=== PATIENT | female | born 1960 | race African-American/Black ===

== ENCOUNTER → 2020-02-08 | Outpatient (CLI) | payer OTHER ==
[~2020-02-08] MED LIST: AMMONIUM LACTATE 12% LOTION 225GM BTL ONE; LIDOCAINE/PRILOCAINE 2.5-2.5% KIT ONE
[2020-02-08 14:30] LABS: BASOPHILS % 0.4 % (0.0-1.0); EOSINOPHILS # (AUTO) 0.2 (0.0-0.4); EOSINOPHILS % 2.4 % (0.0-6.0); HEMATOCRIT 33.6 % (34.2-44.1); HEMOGLOBIN 10.5 g/dL (12.0-16.0); LYMPHOCYTES # (AUTO) 2.9 (1.0-3.2); LYMPHOCYTES % 35.4 % (18.0-39.1); MEAN CORPUSCULAR HEMOGLOBIN 24.1 pg (28-32); MEAN CORPUSCULAR HGB CONC 31.3 g/dL (31-35); MEAN CORPUSCULAR VOLUME 77.2 fL (81-99); MONOCYTES # (AUTO) 0.6 (0.2-0.8); MONOCYTES % 7.7 % (4.4-11.3); NEUTROPHILS # (AUTO) 4.4 (2.1-6.9); NEUTROPHILS % 53.9 % (38.7-80.0); PLATELET COUNT 347 x10e3/uL (140-360); RED BLOOD COUNT 4.35 x10e6/uL (3.6-5.1); RED CELL DISTRIBUTION WIDTH 15.6 % (11.7-14.4)
[2020-02-08 14:51] LABS: ALANINE AMINOTRANSFERASE 9 IU/L (0-55); ALBUMIN 2.9 g/dL (3.5-5.0); ALBUMIN/GLOBULIN RATIO 0.6 (0.8-2.0); ALKALINE PHOSPHATASE 119 IU/L (40-150); ANION GAP 10.8 mmol/L (8-16); BLOOD UREA NITROGEN 10 mg/dL (7-26); BUN/CREATININE RATIO 10 (6-25); CALCIUM 8.6 mg/dL (8.4-10.2); CARBON DIOXIDE 23 mmol/L (22-29); CHLORIDE 110 mmol/L (98-107); CREATININE, SERUM 0.98 mg/dL (0.57-1.11); EST GLOMERULAR FILTRATION RATE > 60 ML/MIN (60-); GLUCOSE 174 mg/dL (74-118); POTASSIUM 3.8 mmol/L (3.5-5.1); SODIUM 140 mmol/L (136-145)
== END ==
LOC: WCC 10:51
PROVIDERS: ATTEND Family Medicine Adult Medicine
DX: E11.621 Type 2 diabetes mellitus with foot ulcer (principal); E11.628 Type 2 diabetes mellitus with other skin complications; L97.426 Non-pressure chronic ulcer of left heel and midfoot with bone involvement without evidence of necrosis; L97.416 Non-pressure chronic ulcer of right heel and midfoot with bone involvement without evidence of necrosis; L97.511 Non-pressure chronic ulcer of other part of right foot limited to breakdown of skin; R60.0 Localized edema; G99.0 Autonomic neuropathy in diseases classified elsewhere; I10 Essential (primary) hypertension; F31.9 Bipolar disorder, unspecified; Z01.810 Encounter for preprocedural cardiovascular examination
CPT/HCPCS: 36415; 80053; 83036; 84134; 85025; 85651; 86140; 87071; 87075; 87186; 87205

== ENCOUNTER → 2020-02-13 | Outpatient (CLI) | payer OTHER | LOC: WCC 09:25 | PROVIDERS: ATTEND Family Medicine Adult Medicine | DX: E11.621 Type 2 diabetes mellitus with foot ulcer (principal); E11.628 Type 2 diabetes mellitus with other skin complications; L97.416 Non-pressure chronic ulcer of right heel and midfoot with bone involvement without evidence of necrosis; L97.426 Non-pressure chronic ulcer of left heel and midfoot with bone involvement without evidence of necrosis; L97.511 Non-pressure chronic ulcer of other part of right foot limited to breakdown of skin; R60.0 Localized edema; G99.0 Autonomic neuropathy in diseases classified elsewhere; I10 Essential (primary) hypertension; F31.9 Bipolar disorder, unspecified; Z01.810 Encounter for preprocedural cardiovascular examination ==

== ENCOUNTER → 2020-02-15 | Outpatient (CLI) | payer OTHER | LOC: RAD 11:41 | PROVIDERS: ATTEND Family Medicine Adult Medicine | DX: E11.621 Type 2 diabetes mellitus with foot ulcer (principal); L97.416 Non-pressure chronic ulcer of right heel and midfoot with bone involvement without evidence of necrosis; L97.421 Non-pressure chronic ulcer of left heel and midfoot limited to breakdown of skin | CPT/HCPCS: 93306 ==

== ENCOUNTER → 2020-02-15 | Outpatient (CLI) | payer OTHER | LOC: WCC 10:39 | PROVIDERS: ATTEND Family Medicine Adult Medicine | DX: E11.621 Type 2 diabetes mellitus with foot ulcer (principal); E11.628 Type 2 diabetes mellitus with other skin complications; L97.426 Non-pressure chronic ulcer of left heel and midfoot with bone involvement without evidence of necrosis; L97.416 Non-pressure chronic ulcer of right heel and midfoot with bone involvement without evidence of necrosis; L97.511 Non-pressure chronic ulcer of other part of right foot limited to breakdown of skin; R60.0 Localized edema; G99.0 Autonomic neuropathy in diseases classified elsewhere; I10 Essential (primary) hypertension; F31.9 Bipolar disorder, unspecified; Z01.810 Encounter for preprocedural cardiovascular examination | CPT/HCPCS: 87071; 87075; 87205 ==

== ENCOUNTER → 2020-02-19 | Outpatient (CLI) | payer OTHER | LOC: WCC 15:27 | PROVIDERS: ATTEND Family Medicine Adult Medicine | DX: E11.621 Type 2 diabetes mellitus with foot ulcer (principal); E11.628 Type 2 diabetes mellitus with other skin complications; L97.426 Non-pressure chronic ulcer of left heel and midfoot with bone involvement without evidence of necrosis; L97.416 Non-pressure chronic ulcer of right heel and midfoot with bone involvement without evidence of necrosis; L97.511 Non-pressure chronic ulcer of other part of right foot limited to breakdown of skin; R60.0 Localized edema; I10 Essential (primary) hypertension; G99.0 Autonomic neuropathy in diseases classified elsewhere; F31.9 Bipolar disorder, unspecified; Z01.810 Encounter for preprocedural cardiovascular examination ==

== ENCOUNTER → 2020-02-22 | Outpatient (CLI) | payer OTHER | LOC: WCC 11:09 | PROVIDERS: ATTEND Family Medicine Adult Medicine | DX: E11.621 Type 2 diabetes mellitus with foot ulcer (principal); E11.628 Type 2 diabetes mellitus with other skin complications; L97.426 Non-pressure chronic ulcer of left heel and midfoot with bone involvement without evidence of necrosis; L97.416 Non-pressure chronic ulcer of right heel and midfoot with bone involvement without evidence of necrosis; L97.511 Non-pressure chronic ulcer of other part of right foot limited to breakdown of skin; L84 Corns and callosities; R60.0 Localized edema; G99.0 Autonomic neuropathy in diseases classified elsewhere; I10 Essential (primary) hypertension; F31.9 Bipolar disorder, unspecified; Z01.810 Encounter for preprocedural cardiovascular examination ==

== ENCOUNTER → 2020-02-27 | Outpatient (CLI) | payer OTHER | LOC: WCC 06:00 | PROVIDERS: ATTEND Family Medicine Adult Medicine | DX: E11.621 Type 2 diabetes mellitus with foot ulcer (principal); E11.628 Type 2 diabetes mellitus with other skin complications; L97.416 Non-pressure chronic ulcer of right heel and midfoot with bone involvement without evidence of necrosis; L97.426 Non-pressure chronic ulcer of left heel and midfoot with bone involvement without evidence of necrosis; R60.0 Localized edema; L84 Corns and callosities; G99.0 Autonomic neuropathy in diseases classified elsewhere; I10 Essential (primary) hypertension; F31.9 Bipolar disorder, unspecified; Z01.810 Encounter for preprocedural cardiovascular examination ==

== ENCOUNTER → 2020-02-29 | Outpatient (CLI) | payer OTHER | LOC: WCC 09:00 | PROVIDERS: ATTEND Family Medicine Adult Medicine | DX: E11.621 Type 2 diabetes mellitus with foot ulcer (principal); E11.628 Type 2 diabetes mellitus with other skin complications; L97.416 Non-pressure chronic ulcer of right heel and midfoot with bone involvement without evidence of necrosis; L97.426 Non-pressure chronic ulcer of left heel and midfoot with bone involvement without evidence of necrosis; G99.0 Autonomic neuropathy in diseases classified elsewhere; L84 Corns and callosities; R60.0 Localized edema; I10 Essential (primary) hypertension; F31.9 Bipolar disorder, unspecified; Z01.810 Encounter for preprocedural cardiovascular examination ==

== ENCOUNTER → 2020-03-05 | Outpatient (CLI) | payer OTHER | LOC: MRI 10:16 | PROVIDERS: ATTEND Family Medicine Adult Medicine | DX: E11.621 Type 2 diabetes mellitus with foot ulcer (principal); L97.416 Non-pressure chronic ulcer of right heel and midfoot with bone involvement without evidence of necrosis ==

== ENCOUNTER → 2020-03-05 | Outpatient (CLI) | payer OTHER | LOC: WCC 09:50 | PROVIDERS: ATTEND Family Medicine Adult Medicine | DX: E11.621 Type 2 diabetes mellitus with foot ulcer (principal); E11.628 Type 2 diabetes mellitus with other skin complications; L97.416 Non-pressure chronic ulcer of right heel and midfoot with bone involvement without evidence of necrosis; L97.426 Non-pressure chronic ulcer of left heel and midfoot with bone involvement without evidence of necrosis; R60.0 Localized edema; L84 Corns and callosities; G99.0 Autonomic neuropathy in diseases classified elsewhere; B96.89 Other specified bacterial agents as the cause of diseases classified elsewhere; I10 Essential (primary) hypertension; F31.9 Bipolar disorder, unspecified; Z01.810 Encounter for preprocedural cardiovascular examination ==

== ENCOUNTER → 2020-03-07 | Outpatient (CLI) | payer OTHER | LOC: WCC 10:11 | PROVIDERS: ATTEND Family Medicine Adult Medicine | DX: E11.621 Type 2 diabetes mellitus with foot ulcer (principal); E11.628 Type 2 diabetes mellitus with other skin complications; L97.416 Non-pressure chronic ulcer of right heel and midfoot with bone involvement without evidence of necrosis; L97.426 Non-pressure chronic ulcer of left heel and midfoot with bone involvement without evidence of necrosis; R60.0 Localized edema; L84 Corns and callosities; G99.0 Autonomic neuropathy in diseases classified elsewhere; I10 Essential (primary) hypertension; B96.89 Other specified bacterial agents as the cause of diseases classified elsewhere; F31.9 Bipolar disorder, unspecified; Z01.810 Encounter for preprocedural cardiovascular examination ==

== ENCOUNTER → 2020-03-12 | Outpatient (CLI) | payer OTHER | LOC: WCC 14:57 | PROVIDERS: ATTEND Family Medicine Adult Medicine | DX: E11.621 Type 2 diabetes mellitus with foot ulcer (principal); E11.628 Type 2 diabetes mellitus with other skin complications; M86.171 Other acute osteomyelitis, right ankle and foot; L97.416 Non-pressure chronic ulcer of right heel and midfoot with bone involvement without evidence of necrosis; L97.426 Non-pressure chronic ulcer of left heel and midfoot with bone involvement without evidence of necrosis; R60.0 Localized edema; L84 Corns and callosities; G99.0 Autonomic neuropathy in diseases classified elsewhere; I10 Essential (primary) hypertension; B96.89 Other specified bacterial agents as the cause of diseases classified elsewhere; F31.9 Bipolar disorder, unspecified; Z01.810 Encounter for preprocedural cardiovascular examination | CPT/HCPCS: 29581; 99213; G0277 ==

== ENCOUNTER → 2020-03-13 | Outpatient (CLI) | payer OTHER | LOC: WCC 14:24 | PROVIDERS: ATTEND Family Medicine | DX: E11.621 Type 2 diabetes mellitus with foot ulcer (principal); E11.628 Type 2 diabetes mellitus with other skin complications; M86.171 Other acute osteomyelitis, right ankle and foot; L97.416 Non-pressure chronic ulcer of right heel and midfoot with bone involvement without evidence of necrosis; L97.426 Non-pressure chronic ulcer of left heel and midfoot with bone involvement without evidence of necrosis; B96.89 Other specified bacterial agents as the cause of diseases classified elsewhere; L84 Corns and callosities; R60.0 Localized edema; I10 Essential (primary) hypertension; G99.0 Autonomic neuropathy in diseases classified elsewhere; F31.9 Bipolar disorder, unspecified; Z01.810 Encounter for preprocedural cardiovascular examination ==

== ENCOUNTER → 2020-03-14 | Outpatient (CLI) | payer OTHER | LOC: WCC 12:12 | PROVIDERS: ATTEND Family Medicine Adult Medicine | DX: E11.621 Type 2 diabetes mellitus with foot ulcer (principal); E11.628 Type 2 diabetes mellitus with other skin complications; M86.171 Other acute osteomyelitis, right ankle and foot; L97.416 Non-pressure chronic ulcer of right heel and midfoot with bone involvement without evidence of necrosis; L97.426 Non-pressure chronic ulcer of left heel and midfoot with bone involvement without evidence of necrosis; L84 Corns and callosities; R60.0 Localized edema; I10 Essential (primary) hypertension; G99.0 Autonomic neuropathy in diseases classified elsewhere; B96.89 Other specified bacterial agents as the cause of diseases classified elsewhere; F31.9 Bipolar disorder, unspecified; Z01.810 Encounter for preprocedural cardiovascular examination ==

== ENCOUNTER 2020-03-15 15:37 | Emergency (ER) | payer OTHER ==
[~2020-03-15] VITALS: Ht 175.3 cm; Wt 104.3 kg
[2020-03-15] MEDS ORDERED: HYDROCODONE/APAP 10MG-325MG TAB PO ONE (16:00)
[2020-03-15] MEDS ORDERED: CLONIDINE HCL 0.2 MG TAB PO ONE (16:00)
== END 2020-03-15 17:42 | disposition home or self-care (01) ==
LOC: ER 15:50
DX: I10 Essential (primary) hypertension (principal); I87.2 Venous insufficiency (chronic) (peripheral); F20.9 Schizophrenia, unspecified; Z85.89 Personal history of malignant neoplasm of other organs and systems
CPT/HCPCS: 36415; 82948; 99282

== ENCOUNTER → 2020-03-15 | Outpatient (CLI) | payer OTHER | LOC: WCC 15:03 | PROVIDERS: ATTEND Family Medicine Adult Medicine | DX: E11.621 Type 2 diabetes mellitus with foot ulcer (principal); E11.628 Type 2 diabetes mellitus with other skin complications; M86.171 Other acute osteomyelitis, right ankle and foot; L97.416 Non-pressure chronic ulcer of right heel and midfoot with bone involvement without evidence of necrosis; L97.426 Non-pressure chronic ulcer of left heel and midfoot with bone involvement without evidence of necrosis; R60.0 Localized edema; L84 Corns and callosities; G99.0 Autonomic neuropathy in diseases classified elsewhere; I10 Essential (primary) hypertension; B96.89 Other specified bacterial agents as the cause of diseases classified elsewhere; F31.9 Bipolar disorder, unspecified; Z01.810 Encounter for preprocedural cardiovascular examination ==

== ENCOUNTER → 2020-03-19 | Outpatient (CLI) | payer OTHER | LOC: MRI 08:55 | PROVIDERS: ATTEND Family Medicine Adult Medicine | DX: E11.621 Type 2 diabetes mellitus with foot ulcer (principal); L97.426 Non-pressure chronic ulcer of left heel and midfoot with bone involvement without evidence of necrosis ==

== ENCOUNTER → 2020-03-19 | Outpatient (CLI) | payer OTHER | LOC: WCC 14:36 | PROVIDERS: ATTEND Family Medicine Adult Medicine | DX: E11.621 Type 2 diabetes mellitus with foot ulcer (principal); E11.628 Type 2 diabetes mellitus with other skin complications; M86.171 Other acute osteomyelitis, right ankle and foot; L97.426 Non-pressure chronic ulcer of left heel and midfoot with bone involvement without evidence of necrosis; L97.416 Non-pressure chronic ulcer of right heel and midfoot with bone involvement without evidence of necrosis; R60.0 Localized edema; L84 Corns and callosities; G99.0 Autonomic neuropathy in diseases classified elsewhere; I10 Essential (primary) hypertension; B96.89 Other specified bacterial agents as the cause of diseases classified elsewhere; F31.9 Bipolar disorder, unspecified; Z01.810 Encounter for preprocedural cardiovascular examination | CPT/HCPCS: 99213; G0277 ==

== ENCOUNTER → 2020-03-20 | Outpatient (CLI) | payer OTHER | LOC: WCC 12:32 | PROVIDERS: ATTEND Family Medicine Adult Medicine | DX: E11.621 Type 2 diabetes mellitus with foot ulcer (principal); E11.628 Type 2 diabetes mellitus with other skin complications; M86.171 Other acute osteomyelitis, right ankle and foot; B96.89 Other specified bacterial agents as the cause of diseases classified elsewhere; L97.416 Non-pressure chronic ulcer of right heel and midfoot with bone involvement without evidence of necrosis; L97.426 Non-pressure chronic ulcer of left heel and midfoot with bone involvement without evidence of necrosis; R60.0 Localized edema; S90.411A Abrasion, right great toe, initial encounter; L84 Corns and callosities; G99.0 Autonomic neuropathy in diseases classified elsewhere; I10 Essential (primary) hypertension; F31.9 Bipolar disorder, unspecified; W45.8XXA Other foreign body or object entering through skin, initial encounter; Z01.810 Encounter for preprocedural cardiovascular examination ==

== ENCOUNTER → 2020-03-21 | Outpatient (CLI) | payer OTHER | LOC: WCC 13:34 | PROVIDERS: ATTEND Family Medicine Adult Medicine | DX: E11.621 Type 2 diabetes mellitus with foot ulcer (principal); E11.628 Type 2 diabetes mellitus with other skin complications; L97.416 Non-pressure chronic ulcer of right heel and midfoot with bone involvement without evidence of necrosis; M86.171 Other acute osteomyelitis, right ankle and foot; L97.426 Non-pressure chronic ulcer of left heel and midfoot with bone involvement without evidence of necrosis; B96.89 Other specified bacterial agents as the cause of diseases classified elsewhere; R60.0 Localized edema; S90.411A Abrasion, right great toe, initial encounter; G99.0 Autonomic neuropathy in diseases classified elsewhere; L84 Corns and callosities; I10 Essential (primary) hypertension; F31.9 Bipolar disorder, unspecified; W45.8XXA Other foreign body or object entering through skin, initial encounter; Z01.810 Encounter for preprocedural cardiovascular examination ==

== ENCOUNTER → 2020-03-25 | Outpatient (CLI) | payer OTHER | LOC: WCC 13:02 | PROVIDERS: ATTEND Family Medicine Adult Medicine | DX: E11.621 Type 2 diabetes mellitus with foot ulcer (principal); E11.628 Type 2 diabetes mellitus with other skin complications; M86.171 Other acute osteomyelitis, right ankle and foot; L97.426 Non-pressure chronic ulcer of left heel and midfoot with bone involvement without evidence of necrosis; L97.416 Non-pressure chronic ulcer of right heel and midfoot with bone involvement without evidence of necrosis; S90.411A Abrasion, right great toe, initial encounter; R60.0 Localized edema; G99.0 Autonomic neuropathy in diseases classified elsewhere; B96.89 Other specified bacterial agents as the cause of diseases classified elsewhere; I10 Essential (primary) hypertension; F31.9 Bipolar disorder, unspecified; Z01.810 Encounter for preprocedural cardiovascular examination; W45.8XXA Other foreign body or object entering through skin, initial encounter ==

== ENCOUNTER → 2020-03-26 | Outpatient (CLI) | payer OTHER | LOC: WCC 13:44 | PROVIDERS: ATTEND Family Medicine Adult Medicine | DX: E11.621 Type 2 diabetes mellitus with foot ulcer (principal); E11.628 Type 2 diabetes mellitus with other skin complications; M86.171 Other acute osteomyelitis, right ankle and foot; L97.416 Non-pressure chronic ulcer of right heel and midfoot with bone involvement without evidence of necrosis; L97.426 Non-pressure chronic ulcer of left heel and midfoot with bone involvement without evidence of necrosis; S90.411A Abrasion, right great toe, initial encounter; R60.0 Localized edema; B96.89 Other specified bacterial agents as the cause of diseases classified elsewhere; I10 Essential (primary) hypertension; G99.0 Autonomic neuropathy in diseases classified elsewhere; F31.9 Bipolar disorder, unspecified; W45.8XXA Other foreign body or object entering through skin, initial encounter; Z01.810 Encounter for preprocedural cardiovascular examination ==

== ENCOUNTER 2020-03-27 11:26 | Outpatient (RCR) | payer OTHER ==
[2020-03-28] MEDS ORDERED: MINERAL OIL/PETROLAT/GLYCERI 6OZ BTL ONE (14:18)
== END 2020-04-07 ==
LOC: WCC 11:26
PROVIDERS: ATTEND Family Medicine Adult Medicine
DX: E11.621 Type 2 diabetes mellitus with foot ulcer (principal); E11.628 Type 2 diabetes mellitus with other skin complications; M86.171 Other acute osteomyelitis, right ankle and foot; L97.426 Non-pressure chronic ulcer of left heel and midfoot with bone involvement without evidence of necrosis; L97.416 Non-pressure chronic ulcer of right heel and midfoot with bone involvement without evidence of necrosis; S90.411A Abrasion, right great toe, initial encounter; R60.0 Localized edema; G99.0 Autonomic neuropathy in diseases classified elsewhere; I10 Essential (primary) hypertension; B96.89 Other specified bacterial agents as the cause of diseases classified elsewhere; F31.9 Bipolar disorder, unspecified; W45.8XXA Other foreign body or object entering through skin, initial encounter; Z01.810 Encounter for preprocedural cardiovascular examination
CPT/HCPCS: 11042; 36415; 82948; 99213; G0277 ×6

== ENCOUNTER 2020-04-05 15:28 | Outpatient (RCR) | payer OTHER ==
[~2020-04-05 15:28] MED LIST changes: +LIDOCAINE VISC 2% SOLN 15 ML UDC ONE; +MINERAL OIL/PETROLAT/GLYCERI 2OZ CRM ONE; +MINERAL OIL/PETROLAT/GLYCERI 6OZ BTL ONE
== END 2020-04-07 ==
LOC: WCC 15:28
PROVIDERS: ATTEND Family Medicine Adult Medicine
DX: E11.621 Type 2 diabetes mellitus with foot ulcer (principal); E11.628 Type 2 diabetes mellitus with other skin complications; M86.171 Other acute osteomyelitis, right ankle and foot; L97.426 Non-pressure chronic ulcer of left heel and midfoot with bone involvement without evidence of necrosis; L97.416 Non-pressure chronic ulcer of right heel and midfoot with bone involvement without evidence of necrosis; L84 Corns and callosities; G99.0 Autonomic neuropathy in diseases classified elsewhere; B96.89 Other specified bacterial agents as the cause of diseases classified elsewhere; F31.9 Bipolar disorder, unspecified; Z01.810 Encounter for preprocedural cardiovascular examination
CPT/HCPCS: 11042; 36415 ×2; 82948 ×2; 99211; 99213 ×3; G0277

== ENCOUNTER 2020-05-02 15:09 | Outpatient (RCR) | payer OTHER ==
[~2020-05-02 15:09] MED LIST changes: +MUPIROCIN 2% OINT 22 GM TUBE ONE
== END 2020-05-05 ==
LOC: WCC 15:09
PROVIDERS: ATTEND Family Medicine Adult Medicine
DX: E11.621 Type 2 diabetes mellitus with foot ulcer (principal); E11.628 Type 2 diabetes mellitus with other skin complications; M86.171 Other acute osteomyelitis, right ankle and foot; L97.416 Non-pressure chronic ulcer of right heel and midfoot with bone involvement without evidence of necrosis; L97.426 Non-pressure chronic ulcer of left heel and midfoot with bone involvement without evidence of necrosis; R60.0 Localized edema; I10 Essential (primary) hypertension; B96.89 Other specified bacterial agents as the cause of diseases classified elsewhere; G99.0 Autonomic neuropathy in diseases classified elsewhere; F31.9 Bipolar disorder, unspecified; W45.8XXA Other foreign body or object entering through skin, initial encounter; Z01.810 Encounter for preprocedural cardiovascular examination
CPT/HCPCS: 11042 ×2; 11055; 36415 ×11; 82948 ×11; 97597; 99212 ×2; 99213 ×5; 99214 ×2; G0277 ×11

== ENCOUNTER 2020-05-23 15:13 | Outpatient (RCR) | payer OTHER ==
[~2020-05-23 15:13] MED LIST changes: -LIDOCAINE VISC 2% SOLN 15 ML UDC ONE; -LIDOCAINE/PRILOCAINE 2.5-2.5% KIT ONE; -MINERAL OIL/PETROLAT/GLYCERI 2OZ CRM ONE; -MINERAL OIL/PETROLAT/GLYCERI 6OZ BTL ONE; -MUPIROCIN 2% OINT 22 GM TUBE ONE
[2020-05-23] MEDS ORDERED: MINERAL OIL/PETROLAT/GLYCERI 2OZ CRM ONE (16:47)
== END 2020-06-05 ==
LOC: WCC 15:13
PROVIDERS: ATTEND Family Medicine Adult Medicine
DX: E11.621 Type 2 diabetes mellitus with foot ulcer (principal); E11.628 Type 2 diabetes mellitus with other skin complications; M86.171 Other acute osteomyelitis, right ankle and foot; L97.416 Non-pressure chronic ulcer of right heel and midfoot with bone involvement without evidence of necrosis; L97.426 Non-pressure chronic ulcer of left heel and midfoot with bone involvement without evidence of necrosis; R60.0 Localized edema; S90.412A Abrasion, left great toe, initial encounter; S90.411A Abrasion, right great toe, initial encounter; I10 Essential (primary) hypertension; G99.0 Autonomic neuropathy in diseases classified elsewhere; F31.9 Bipolar disorder, unspecified; W22.8XXA Striking against or struck by other objects, initial encounter; W45.8XXA Other foreign body or object entering through skin, initial encounter; Z01.810 Encounter for preprocedural cardiovascular examination
CPT/HCPCS: 36415 ×4; 82948 ×4; 99212; 99213 ×3; G0277 ×3

== ENCOUNTER 2020-07-04 14:52 | Outpatient (RCR) | payer OTHER ==
[~2020-07-04 14:52] MED LIST changes: +LIDOCAINE/PRILOCAINE 2.5-2.5% KIT ONE; +MINERAL OIL/PETROLAT/GLYCERI 6OZ BTL ONE
== END 2020-07-05 ==
LOC: WCC 14:52
PROVIDERS: ATTEND Family Medicine Adult Medicine
DX: E11.628 Type 2 diabetes mellitus with other skin complications (principal); S91.302A Unspecified open wound, left foot, initial encounter; R60.0 Localized edema; G99.0 Autonomic neuropathy in diseases classified elsewhere; I10 Essential (primary) hypertension; F31.9 Bipolar disorder, unspecified; W22.8XXA Striking against or struck by other objects, initial encounter; W45.8XXA Other foreign body or object entering through skin, initial encounter; X58.XXXA Exposure to other specified factors, initial encounter; Z01.810 Encounter for preprocedural cardiovascular examination
CPT/HCPCS: 36415; 82948

== ENCOUNTER 2020-08-01 08:10 | Outpatient (RCR) | payer OTHER ==
[~2020-08-01 08:10] MED LIST changes: -LIDOCAINE/PRILOCAINE 2.5-2.5% KIT ONE
[2020-08-01] MEDS ORDERED: AMMONIUM LACTATE 12% LOTION 225GM BTL ONE (13:32)
[2020-08-01] MEDS ORDERED: MINERAL OIL/PETROLAT/GLYCERI 6OZ BTL ONE (13:32)
[2020-08-01] MEDS ORDERED: LIDOCAINE VISC 2% SOLN 15 ML UDC ONE (13:32)
== END 2020-08-05 ==
LOC: WCC 08:10
PROVIDERS: ATTEND Family Medicine Adult Medicine
DX: E11.628 Type 2 diabetes mellitus with other skin complications (principal); S91.302A Unspecified open wound, left foot, initial encounter; R60.0 Localized edema; I10 Essential (primary) hypertension; G99.0 Autonomic neuropathy in diseases classified elsewhere; F31.9 Bipolar disorder, unspecified; W22.8XXA Striking against or struck by other objects, initial encounter; W45.8XXA Other foreign body or object entering through skin, initial encounter; X58.XXXA Exposure to other specified factors, initial encounter; Z01.810 Encounter for preprocedural cardiovascular examination
CPT/HCPCS: 36415; 82948

== ENCOUNTER 2020-08-22 09:19 | Outpatient (RCR) | payer OTHER ==
[~2020-08-22 09:19] MED LIST changes: -AMMONIUM LACTATE 12% LOTION 225GM BTL ONE; +TRYPSIN/BALSAM PERU/CASTOR OIL ONE
[2020-08-22] MEDS ORDERED: MINERAL OIL/PETROLAT/GLYCERI 6OZ BTL ONE (13:43)
== END 2020-09-04 ==
LOC: WCC 09:19
PROVIDERS: ATTEND Family Medicine Adult Medicine
DX: E11.628 Type 2 diabetes mellitus with other skin complications (principal); R60.0 Localized edema; L84 Corns and callosities; I10 Essential (primary) hypertension; G99.0 Autonomic neuropathy in diseases classified elsewhere; F31.9 Bipolar disorder, unspecified; Z01.810 Encounter for preprocedural cardiovascular examination; W22.8XXA Striking against or struck by other objects, initial encounter; X58.XXXA Exposure to other specified factors, initial encounter; W45.8XXA Other foreign body or object entering through skin, initial encounter
CPT/HCPCS: 36415; 82948

== ENCOUNTER → 2021-05-05 | Outpatient (RCR) | payer OTHER ==
[~2021-05-05] MED LIST changes: +AMMONIUM LACTATE 12% LOTION 225GM BTL ONE; +LIDOCAINE VISC 2% SOLN 15 ML UDC ONE; +MINERAL OIL/PETROLAT/GLYCERI 2OZ CRM ONE; -MINERAL OIL/PETROLAT/GLYCERI 6OZ BTL ONE; -TRYPSIN/BALSAM PERU/CASTOR OIL ONE
== END ==
LOC: WCC 09:48
PROVIDERS: ATTEND Internal Medicine Infectious Disease
DX: E11.621 Type 2 diabetes mellitus with foot ulcer (principal); E11.628 Type 2 diabetes mellitus with other skin complications; L97.421 Non-pressure chronic ulcer of left heel and midfoot limited to breakdown of skin; L97.511 Non-pressure chronic ulcer of other part of right foot limited to breakdown of skin; L97.521 Non-pressure chronic ulcer of other part of left foot limited to breakdown of skin; R60.0 Localized edema; I10 Essential (primary) hypertension; G99.0 Autonomic neuropathy in diseases classified elsewhere; F31.9 Bipolar disorder, unspecified; W22.8XXA Striking against or struck by other objects, initial encounter; W45.8XXA Other foreign body or object entering through skin, initial encounter; X58.XXXA Exposure to other specified factors, initial encounter; Z01.810 Encounter for preprocedural cardiovascular examination
CPT/HCPCS: 36415; 82948

== ENCOUNTER → 2021-06-27 | Outpatient (CLI) | payer OTHER | LOC: RAD 13:00 | PROVIDERS: ATTEND Internal Medicine Infectious Disease | DX: E11.621 Type 2 diabetes mellitus with foot ulcer (principal); L97.511 Non-pressure chronic ulcer of other part of right foot limited to breakdown of skin ==

== ENCOUNTER → 2021-07-14 | Outpatient (CLI) | payer OTHER | LOC: MRI 13:32 | PROVIDERS: ATTEND Internal Medicine Infectious Disease | DX: E11.621 Type 2 diabetes mellitus with foot ulcer (principal); L97.421 Non-pressure chronic ulcer of left heel and midfoot limited to breakdown of skin ==

== ENCOUNTER 2021-07-25 11:42 | Outpatient (RCR) | payer OTHER ==
[2021-07-25] MEDS ORDERED: AMMONIUM LACTATE 12% LOTION 225GM BTL ONE (13:05)
[2021-07-25] MEDS ORDERED: MINERAL OIL/PETROLAT/GLYCERI 6OZ BTL ONE (13:05)
== END 2021-08-05 ==
LOC: WCC 11:42
PROVIDERS: ATTEND Internal Medicine Infectious Disease
DX: E11.621 Type 2 diabetes mellitus with foot ulcer (principal); E11.628 Type 2 diabetes mellitus with other skin complications; L97.421 Non-pressure chronic ulcer of left heel and midfoot limited to breakdown of skin; L97.511 Non-pressure chronic ulcer of other part of right foot limited to breakdown of skin; R60.0 Localized edema; S90.822A Blister (nonthermal), left foot, initial encounter; S90.425A Blister (nonthermal), left lesser toe(s), initial encounter; S90.424A Blister (nonthermal), right lesser toe(s), initial encounter; I10 Essential (primary) hypertension; G99.0 Autonomic neuropathy in diseases classified elsewhere; F31.9 Bipolar disorder, unspecified; W22.8XXA Striking against or struck by other objects, initial encounter; W45.8XXA Other foreign body or object entering through skin, initial encounter; X58.XXXA Exposure to other specified factors, initial encounter; Z01.810 Encounter for preprocedural cardiovascular examination

== ENCOUNTER 2021-08-11 11:32 | Outpatient (RCR) | payer OTHER ==
[2021-08-11] MEDS ORDERED: MINERAL OIL/PETROLAT/GLYCERI 6OZ BTL ONE (13:39)
== END 2021-09-04 ==
LOC: WCC 11:32
PROVIDERS: ATTEND Internal Medicine Infectious Disease
DX: E11.621 Type 2 diabetes mellitus with foot ulcer (principal); E11.628 Type 2 diabetes mellitus with other skin complications; L97.421 Non-pressure chronic ulcer of left heel and midfoot limited to breakdown of skin; L97.511 Non-pressure chronic ulcer of other part of right foot limited to breakdown of skin; S90.424A Blister (nonthermal), right lesser toe(s), initial encounter; S90.425A Blister (nonthermal), left lesser toe(s), initial encounter; S90.822A Blister (nonthermal), left foot, initial encounter; R60.0 Localized edema; I10 Essential (primary) hypertension; G99.0 Autonomic neuropathy in diseases classified elsewhere; F31.9 Bipolar disorder, unspecified; W22.8XXA Striking against or struck by other objects, initial encounter; W45.8XXA Other foreign body or object entering through skin, initial encounter; X58.XXXA Exposure to other specified factors, initial encounter; Z01.810 Encounter for preprocedural cardiovascular examination